=== PATIENT | female | born 1985 | race Caucasian/White ===

== ENCOUNTER 2021-09-05 11:55 | Emergency (ER) | payer OTHER, SELFPAY ==
--- NOTE | ~2021-09-05 | XR_ITS ---
[[id number] ] INDICATION: Left rib pain TECHNIQUE: Frontal projection of the upper left ribs, frontal projection of the lower left ribs, obli que projection of all the left ribs, frontal inspiratory chest x-ray for interpretation. FINDINGS: There are no displaced rib fractures identified. There are no soft tissue abnormality see n. The lungs are clear. IMPRESSION: 1:No displaced rib fractures. Reviewed, dictated and finalized at location A.
--- NOTE | ~2021-09-05 | XR_ITS ---
XR thoracic spine 3V 09/05/2021 13:28 Indication: Back pain Procedure: 3 views thoracic spine Comparison: No prior studies for comparison. Findings: Vertebral body heights are maintained. No fracture, subluxation or dislocation. No paraspin al soft tissue abnormality. Surrounding osseous structures within normal limits. Impression: 1: No acute abnormality of the thoracic spine. Reviewed, dictated and finalized at location A. Impression: 1: No acute abnormality of the thoracic spine.
[2021-09-05 12:38] VITALS: BP 143/99; PULSE 87; RESP 16; TEMP 36.8; O2SAT 100
[2021-09-05] MEDS: KETOROLAC (*BKC) 60 MG/2 ML VIAL IM (13:15)
--- NOTE | 2021-09-05 15:43 | ED.BACK ---
HPI - Back Pain/Injury General Chief Complaint: Back Pain/Injury <Otf Kwon PA-C - Last Filed: 09/05/21 15:48> Stated Complaint: Left Lower Back Pain <ARI Robert Last Filed: 09/05/21 15:48> Time Seen by Provider: 09/05/21 12:43 <ARI Robert Last Filed: 09/05/21 15:48> Source: patient <ARI Robert Last Filed: 09/05/21 15:48> Mode of arrival: ambulatory <ARI Robert Last Filed: 09/05/21 15:48> Limitations: no limitations <ARI Robert Last Filed: 09/05/21 15:48> History of Present Illness HPI Narrative: Patient presents with chief complaint of pain to the left rib area that goes to her upper back. Patient reports that she was stringing [place] lights on her when she began to have a sharp pain to the area that brought her to her knees. Patient reports using a heating pad and taking ibuprofen without relief in her symptoms last night. She denies sob, chest pain, vomiting, fall, direct impact to the area. She denies feeling a popping sensation. She reports this happened to her in the past and she was given a shot to help with pain. She denies any other symptoms or concerns. She denies chance of due to homsexuality. <Otf Kwon PA-C - Last Filed: 09/05/21 15:48> Related Data Allergies/Adverse Reactions: Allergies Allergy/AdvReac Type Severity Reaction Status Date / Time bacitracin Allergy Unknown Verified 09/05/21 12:53 <ARI Robert Last Filed: 09/05/21 15:48> Review of Systems Review of Systems: CONSTITUTIONAL: Denies fever, chills, or sweats. EYES: Denies visual changes, redness, or discharge. ENT: Denies rhinorrhea, congestion, sore throat, or otalgia. CARDIOVASCULAR: Denies chest pain, palpitations, or edema. RESPIRATORY: Denies cough or dyspnea. GASTROINTESTINAL: Denies abdominal pain, nausea, vomiting, or diarrhea. GENITOURINARY: Denies dysuria or hematuria. SKIN: Denies rash or itching. MUSCULOSKELETAL: Reports left rib and back pain denies joint pain, or myalgia. NEUROLOGIC: Denies headache, numbness, dizziness, or weakness. PSYCHIATRIC: Denies anxiety or depression. <Otf Kwon PA-C - Last Filed: 09/05/21 15:48> Exam Narrative: GENERAL: Well-appearing, well-nourished, and tearful HEAD: Normocephalic, atraumatic. EYES: PERRLA and EOMI. NECK: Supple. No adenopathy or masses. No carotid bruits or JVD CHEST: Clear to auscultation. No respiratory distress. No wheezes rales or rhonchi HEART: Regular rate and rhythm. No murmur heard. Normal peripheral pulses. ABDOMEN: Soft, nontender, nondistended, normal active bowel sounds. EXTREMITIES: Pain with palpation of latissimus left side. around the left ribs all the way around to thoracic region. No outward sign of trauma. Normal range of motion. No edema. SKIN: Warm, dry, no rash. NEURO: No focal deficits. Alert and oriented x3. 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 I was available for evaluation and consultation, I agree with the documentation as above <Henry Cobb MD - Last Filed: 09/05/21 18:44> Vital Signs Vital signs: Vital Signs Temperature 36.8 C 09/05/21 12:38 Pulse Rate 87 09/05/21 12:38 Respiratory Rate 16 09/05/21 12:38 Blood Pressure 143/99 H 09/05/21 12:38 Pulse Oximetry 100 09/05/21 12:38 Temperature 36.8 C 09/05/21 12:38 Pulse Rate 87 09/05/21 12:38 Respiratory Rate 16 09/05/21 12:38 Blood Pressure 143/99 H 09/05/21 12:38 Pulse Oximetry 100 09/05/21 12:38 <Otf Kwon PA-C - Last Filed: 09/05/21 15:48> Vital Signs Temperature 36.8 C 09/05/21 12:38 Pulse Rate 87 09/05/21 12:38 Respiratory Rate 16 09/05/21 12:38 Blood Pressure 143/99 H 09/05/21 12:38 Pulse Oximetry 100 09/05/21 12:38 Temperature 36.8 C 09/05/21
== END 2021-09-05 14:32 | disposition home or self-care (01) ==
PROVIDERS: Emergency Provider Emergency Medicine; PCP Family Medicine
DX: S29.012A Strain of muscle and tendon of back wall of thorax, initial encounter (principal); X58.XXXA Exposure to other specified factors, initial encounter
CPT/HCPCS: 71101; 72072; 96372; 99284; J1885

== ENCOUNTER → 2023-01-12 13:31 | Outpatient (CLI) | payer OTHER, SELFPAY ==
--- NOTE | ~2023-01-12 | US_ITS ---
EXAMINATION: US pelvic complete DATE: 01/12/2023 13:51 INDICATION: Abnormal uterine bleeding. History of multiple sclerosis. Comparison:No prior studies for comparison. TECHNIQUE: Multiple transabdominal sonographic images of the pelvis performed. FINDINGS: The uterus measures 7.8 x 3.7 x 4.8 cm. The endometrial complex measures 5 mm. The right ovary measures 4 x 3.4 x 5.5 cm and the left ovary measures 2.7 x 1.8 x 3.5 cm. There are small follicles in each ovary. Normal doppler signal in both ovaries. There is right ovary is cyst me asuring 2.4 cm. There is no free fluid in the pelvis. There are no abnormal masses seen on either side. IMPRESSION: 1. Right ovarian cyst measuring 2.4 cm. Reviewed, dictated and finalized at location L. 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
== END ==
PROVIDERS: PCP Advanced Practice Midwife; Visit Provider Advanced Practice Midwife
DX: N93.8 Other specified abnormal uterine and vaginal bleeding (principal); N83.201 Unspecified ovarian cyst, right side
CPT/HCPCS: 76856

== ENCOUNTER → 2023-03-02 15:16 | Outpatient (CLI) | payer OTHER, SELFPAY ==
--- NOTE | ~2023-03-02 | US_ITS ---
EXAMINATION: US transvaginal DATE: 03/02/2023 15:39 INDICATION: Right ovarian cyst TECHNIQUE: Multiple endovaginal sonographic images of the pelvis were obtained. COMPARISON: 01/12/2023 FINDINGS: The uterus measures 6.6 x 3.2 x 4.4 cm. The endometrial complex measures 9 mm. The right ov meri measures 3.8 x 2.0 x 2.4 cm and contains a 1.9 cm cyst, considered within normal limits in a repr oductive age female. The left ovary measures 2.2 x 1.9 x 1.9 cm. There is normal vascular flow in the ovaries. There is no free fluid in the pelvis. IMPRESSION: 1. Small right ovarian cyst with decrease in size requiring no further imaging follow-up. Reviewed, dictated and finalized at location F.
== END ==
PROVIDERS: PCP Obstetrics & Gynecology Gynecology; Visit Provider Obstetrics & Gynecology Gynecology
DX: N83.201 Unspecified ovarian cyst, right side (principal)
CPT/HCPCS: 76830

== ENCOUNTER 2024-09-07 08:44 | Emergency (ER) | payer OTHER, SELFPAY ==
[2024-09-07 09:07] VITALS: BP 114/88; PULSE 80; RESP 16; TEMP 36.4; O2SAT 100
--- NOTE | 2024-09-07 09:19 | ED.URI ---
HPI - URI/Sore Throat General Chief Complaint: Upper Respiratory Infection Stated Complaint: Chest Congestion,Sinus Pressure, Cough, Earache Time Seen by Provider: 09/07/24 09:13 Source: patient and RN notes reviewed Mode of arrival: ambulatory Limitations: no limitations History of Present Illness HPI Narrative: Patient presents today complaining of sinus pressure, left ear pressure and decreased hearing, cough, nasal congestion. Bilateral eye watering started 3 days ago. Denies shortness of breath or fever. She has tried [place] Plus and Benadryl without relief. Currently takes Fingolimod for MS. Related Data Home Medications Medication Instructions Recorded Confirmed Lactobacillus 25 billion 1 cap PO DAILY 09/07/24 09/07/24 cell-Bifido 25 billion [id number] capsule cholecalciferol (vitamin D3) 10 10 mcg PO DAILY 09/07/24 09/07/24 mcg (400 unit) tablet (Vitamin D3) doxycycline hyclate 100 mg capsule 100 mg PO BID 09/07/24 09/07/24 fexofenadine 180 mg tablet 180 mg PO DAILY 09/07/24 09/07/24 fingolimod 0.5 mg capsule 0.5 mg PO DAILY 09/07/24 09/07/24 magnesium oxide 500 mg PO BID 09/07/24 09/07/24 melatonin 12 mg tablet 6 mg PO HS 09/07/24 09/07/24 omeprazole 20 mg capsule,delayed 20 mg PO DAILY 09/07/24 09/07/24 release Allergies Allergy/AdvReac Type Severity Reaction Status Date / Time bacitracin Allergy Unknown Verified 09/07/24 08:57 latex Allergy Rash Verified 09/07/24 08:57 Review of Systems Review of Systems: CONSTITUTIONAL: Denies body aches, fever, chills, or sweats. EYES: Denies visual changes, redness, or discharge. ENT: Denies rhinorrhea, sore throat.+ nasal congestion, sinus pressure, watery eyes, left ear pain and decreased hearing CARDIOVASCULAR: Denies chest pain, palpitations, or edema. RESPIRATORY: Denies dyspnea.+ cough GASTROINTESTINAL: Denies abdominal pain, nausea, vomiting, or diarrhea. GENITOURINARY: Denies dysuria or hematuria. SKIN: Denies rash, itching, or wounds. MUSCULOSKELETAL: Denies back pain, joint pain, or myalgia. NEUROLOGIC: Denies headache, numbness, tingling, or weakness. PSYCH: Denies depression or anxiety. [facility] Past Medical History Medical History (Updated 09/07/24 @ 09:26 by Marysol Thomas, POULTRY INSPECTOR, ) Multiple sclerosis Comments At time of signature, I have reviewed and agree with nursing past medical, surgical, social and family history unless otherwise noted. Please see nursing chart for further information. There is no relevant family history pertinent to the presenting complaint Exam Narrative: GENERAL: Mildly ill-appearing, well-nourished, and in no acute distress. HEAD: Normocephalic, atraumatic. EYES: EOMI. PERRL. No redness or drainage. Conjunctivae normal. Copious eye watering bilaterally. Lids and lashes normal. ENT: Mucous membranes pink and moist. Nares congested. No rhinorrhea. Right TM normal. Left TM with mild serous effusion without evidence of bacterial infection.. Throat normal with some postnasal drainage. Uvula midline. NECK: Normal AROM. Supple. No lymphadenopathy. CHEST: No respiratory distress. Clear to auscultation. HEART: Regular rate and rhythm. No murmur appreciated. EXTREMITIES: Normal range of motion. No edema. SKIN: Warm, dry, no rash. Capillary refill normal. Normal skin turgor. NEURO: No focal deficits. Alert and oriented x3. Gait steady. PSYCH: Normal affect. No signs of depression or anxiety. Course Course Level of Care: Express Care Visit Vital Signs Vital signs: Vital Signs Temperature 97.6 F 09/07/24 09:07 Pulse Rate 80 09/07/24 09:07 Respiratory Rate 16 09/07/24 09:07 Blood Pressure 114/88 09/07/24 09:07 Pulse Oximetry 100 09/07/24 09:07 Temperature 97.6 F 09/07/24 09:07 Pulse Rate 80 09/07/24 09:07 Respiratory Rate 16 09/07/24 09:07 Blood Pressure 114/88 09/07/24 09:07 Pulse Oximetry 100 09/07/24 09:07 Reviewed [facility]
[2024-09-07 09:25] LABS: EDINFLUASCREEN Negative (Negative); EDINFLUBSCREEN Negative (Negative)
== END 2024-09-07 09:33 | disposition home or self-care (01) ==
PROVIDERS: Emergency Provider Nurse Practitioner
DX: J06.9 Acute upper respiratory infection, unspecified (principal); Z20.822 Contact with and (suspected) exposure to COVID-19; G35 Multiple sclerosis
CPT/HCPCS: 87635; 87804; 99212; G0463